=== PATIENT | female | born 1975 | race Two or more races ===

== ENCOUNTER 2024-04-13 09:07 | Emergency (ER) | payer OTHER ==
[~2024-04-13] VITALS: Ht 172.7 cm; Wt 72.6 kg
[2024-04-13] MEDS ORDERED: ORPHENADRINE CITRATE 30 MG/ML AMPUL IM ONE (09:45)
[2024-04-13] MEDS ORDERED: ORPHENADRINE CITRATE 30 MG/ML AMPUL ONE (09:45)
[2024-04-13] MEDS ORDERED: KETOROLAC TROMETHAMINE 30 MG VIAL IM ONE (09:45)
[2024-04-13] MEDS ORDERED: KETOROLAC TROMETHAMINE 30 MG VIAL ONE (09:46)
== END 2024-04-13 11:39 | disposition home or self-care (01) ==
LOC: ER 09:08
DX: S59.8 Other specified injuries of elbow and forearm (principal); W19.XXXA Unspecified fall, initial encounter; Y93.89 Activity, other specified; Y92.098 Other place in other non-institutional residence as the place of occurrence of the external cause; Y99.8 Other external cause status